=== PATIENT | female | born 1960 | race African-American/Black ===

== ENCOUNTER 2019-01-28 10:27 | Observation (INO) ==
[2019-01-28 11:14] LABS: Bilirubin,Urine Negative (Negative); Blood,Urine Negative (Negative); Clarity,Urine Clear (Clear); Color,Urine Yellow (Yellow); Glucose,Urine (UA) >=1000 mg/dL (Normal); Ketones,Urine Negative (Negative); Leukocyte Esterase,Urine Negative (Negative); Nitrite,Urine Negative (Negative); PH,Urine 7.5 pH Units (5.0-8.0); Protein,Urine Trace mg/dL (Neg-Trace); Specific Gravity,Urine > 1.030 (1.010-1.025); Urobilinogen,Urine Normal (Normal)
[2019-01-28] MEDS ORDERED: Ondansetron 4 MG/2 ML VIAL IVP STA (11:44)
[2019-01-28] MEDS ORDERED: GI Cocktail 40 ML EACH PO ONE (11:44)
[2019-01-28] MEDS ORDERED: Morphine Sulfate 2 MG/ML SYRINGE IVP STA ×3 (11:44→16:11)
--- NOTE | 2019-01-28 11:52 | Emergency Department Note ---
Disposition Clinical Impression: Abdominal pain Qualifiers: Abdominal location: generalized Qualified Code(s): R10.84 - Generalized abdominal pain Pancreatitis Qualifiers: Chronicity: acute Pancreatitis type: unspecified pancreatitis type Acute pancreatitis complication: unspecified Qualified Code(s): K85.90 - Acute pancreatitis without necrosis or infection, unspecified Disposition: Admitted As Inpatient Condition: Good Referrals: Ian Gupta DO [Primary Care Provider] - Forms: ED Satisfaction Letter, Work/School Release Time of Disposition: 17:06 General Adult HPI - General Chief complaint: ED Abdominal Pain Stated complaint: RUQ pain Time Seen by Provider: 01/28/19 10:41 Source: patient Limitations: no limitations Nursing Notes Reviewed: Yes Vital Signs Reviewed: Yes - History of Present Illness HPI Narrative: Patient reporting to emergency complaining of a several month history of upper abdominal pain. She has been seen by GI extensively for this. Has had an EGD as well as HIDA scan. She does have a history of an appendectomy. She reports decreased bowel movements of no bowel movement today and not passing gas today. She denies any fevers but does report some nausea. Has had vomiting but not today. She describes the vomiting is whenever she ate recently. Nonbloody nonbilious. Patient is also reporting some abdominal distention. She went to the GI doctor today and was sent to the emergency department. Pain Scale: 8 - Related Data Allergies Allergy/AdvReac Type Severity Reaction Status Date / Time No Known Allergies Allergy Verified 01/28/19 10:31 All systems ED: reviewed and negative except as stated. Review of Systems: As Per HPI Constitutional: Denies: fever, chills Cardiovascular: Denies: chest pain Respiratory: Denies: cough, dyspnea Gastrointestinal: Reports: abdominal pain, nausea, vomiting, constipation. Denies: diarrhea, hematemesis, melena, hematochezia Genitourinary: Denies: urgency, dysuria, frequency, hematuria Musculoskeletal: Denies: back pain, neck pain Neurological: Denies: headache Past Medical History - Past Medical History Attestation: Yes The following information was validated with the patient. Source: patient Medical history: Reports: diabetes, GERD, hypertension Surgical history: Reports: appendectomy, hysterectomy, other Psychiatric history: Reports: anxiety - Social History Smoking Status: Current every day smoker Smokeless Tobacco Status: No Alcohol use: Reports: none Drug use: Reports: none Physical Exam - General Limitations: no limitations General appearance: alert, in no apparent distress - Head Head exam: atraumatic, normocephalic, normal inspection - Eye Eye exam: Present: normal appearance, PERRL, EOMI - ENT ENT exam: normal exam, normal oropharynx, mucous membranes moist - Neck Neck exam: Present: normal inspection, full ROM, trachea midline - Chest Chest inspection: Present: normal inspection, symmetric chest wall rise - Respiratory Respiratory exam: Present: normal lung sounds bilaterally. Absent: respiratory distress, accessory muscle use - Cardiovascular Cardiovascular exam: Present: regular rate, normal rhythm, normal heart sounds - Abdominal Exam Abdominal exam: Present: soft, tenderness (Epigastric.), distention (Mildly ), guarding. Absent: rebound, rigidity, organomegaly, Navas's sign, Rovsing's sign, tenderness at McBurney's Point - Extremities Exam Extremities exam: Present: normal inspection, full ROM, normal capillary refill. Absent: tenderness, pedal edema - Neurological Exam Neurological exam: Present: alert, oriented X3 - Psychiatric Psychiatric exam: Present: normal affect, normal mood - Skin Skin exam: Present: warm, dry, intact, normal color. Absent: rash, cyanosis, diaphoresis Course Course Narrative: Patient appears uncomfortable in bed. She does have some mild abdominal distention. No fluid wave appreciated. Does have some epigastric tenderness. Patient has had an EGD which did show some gastritis. She has been on Carafate as well as a PPI. She she has had a colonoscopy previously however spent several years. She denies any bowel movements today states she did have one yesterday. She is not passing gas today either. Does have a history of an appendectomy. Still has her gallbladder. Reports a weight loss secondary to anorexia. We will provide patient with pain medication as well as an anti- medics. She states she has had relief with a GI cocktail previously we will provide her with this as well. We will get a CT of her abdomen and discussed the case with the nurse practitioner that sent her here from GI. - Reevaluation(s) Reevaluation #1: We will order an MRCP an attempt to get this outpatient is still in the ER. We have provided her with liter fluid. She does have a leukocytosis, anorexia, no vision or alkaline phosphatase. Mild elevation in her lipase. Patient has had recurrence of her abdominal pain she has been here. CT without acute process. Time: 14:20 Reevaluation #2: Patient has had a reoccurrence of her abdominal pain since she has been here. She is requiring morphine approximately every 2 hours. We were able to get the MRCP here in the emergency department. This had no acute findings. Patient's lipase is 3 times the normal limit. She does have pancreatitis. We will provide patient with continued pain medication as well as fluid hydration while she is here. We will admit to the hospital for her anorexia as well as continued abdominal pain. On repeat abdominal exam it is still mildly distended with pain throughout on palpation. Not peritoneal. No fluid wave. Time: 17:06 - Consultations Consultation #1: I spoke with CRISPIN Vallejo in GI. She was requesting the patient have an MRCP. She stated that the Pt did have an EGD that showed gastritis and duodenal erosion patient has been on PPIs as well as Carafate with no resolution. She reports a weight loss recently. She is concerned that the patient needed an MRCP so she sent her here. She said she did have a HIDA scan so she was concerned for choledocholithiasis. Time: 11:49 Consultation #2: I did discuss the patient with Junito air pollution compliance inspector for GI. He is agreeable for admission if this needs to happen for the patient have an MRCP. Time: 14:15 Consultation #3: Dr. Washington accepted patient in stable condition Time: 17:06 Vital Signs Temperature 98.5 F 01/28/19 10:29 Pulse Rate 87 01/28/19 10:29 Respiratory Rate 16 01/28/19 10:29 Blood Pressure 153/82 01/28/19 10:29 O2 Sat by Pulse Oximetry 97 01/28/19 10:29 Temperature 98.5 F 01/28/19 10:29 Pulse Rate 82 01/28/19 16:59 Respiratory Rate 16 01/28/19 16:59 Blood Pressure 144/72 01/28/19 16:59 O2 Sat by Pulse Oximetry 98 01/28/19 16:59 Oxygen Delivery Oxygen Delivery Room Air Medical Decision Making - MDM Narrative Medical decision making narrative: 1333: Labs are back, we will page GI to determine best management and disposition for her. 1617 hrs.: Patient is return from MRCP. Waiting on GI to read the study. Abdomen/Pelvis CT 01/28/19 11:43 IMPRESSION: No acute intra-abdominal abnormality identified. Small nonobstructing calculus in the lower left kidney unchanged. Normal amount of stool present without evident impaction. Severe scoliosis. No other significant abnormality. No significant change from the prior study. D/ / Chris Albert MD / Chris Albert MD Interpreting Provider: Chris Albert MD Abdomen MRI 01/28/19 14:12 IMPRESSION: 1. No acute process. 2. No cholelithiasis or choledocholithiasis. D/ / Ian Rendon MD / Ian Rendon MD Interpreting Provider: Ian Rendon MD 1655 hrs.: Am uncertain as to why she saw him abdominal pain as her CT and MRI the abdomen is not very impressive. She does have a leukocytosis and her lipase is elevated. We are talked about how she is feeling if she still having pain we will consider bring her into the hospital with hospitalist admission. - Medical Records Medical records reviewed: Yes I reviewed the patient's medical records. - Lab Data Lab results reviewed: Yes I reviewed the patient's lab results. Result diagrams: 01/28/19 11:53 01/28/19 11:53 Lab Results 01/28/19 01/28/19 01/28/19 Range/Units 11:03 11:53 11:53 WBC 16.4 H (4.3-11.1) K/mcL RBC 4.99 H (3.82-4.97) M/mcL Hgb 12.4 (11.5-15.4) g/dL Hct 39.1 (35.3-44.9) % MCV 78.4 L (83.0-100.0) fL MCH 24.8 L (28.0-33.3) pg MCHC 31.7 (31.6-35.5) g/dL RDW 15.8 H (11.5-14.5) % Plt Count 239 (140-400) K/mcL MPV 12.3 (9.4-12.4) fL Immature Gran % 0.4 (0-4) % Seg Neutrophils % 80.1 % Lymphocytes % 13.8 % Monocytes % 5.1 % Eosinophils % 0.2 % Basophils % 0.4 % Neutrophils # 13.2 H (1.6-8.9) K/mcL Lymphocytes # 2.3 (0.6-4.6) K/mcL Monocytes # 0.8 (0.0-1.3) K/mcL Eosinophils # 0.0 (0.0-0.6) K/mcL Basophils # 0.1 (0.0-0.2) K/mcL Sodium 135 L (136-145) mEq/L Potassium 4.0 (3.5-5.1) mEq/L Chloride 98 (98-107) mEq/L Carbon Dioxide 27 (23-29) mEq/L BUN 21 (8-23) mg/dL Creatinine 0.73 (0.60-1.20) mg/dL Est GFR ( Amer) > 60 (> 60) Est GFR (Non-Af Amer) > 60 (> 60) BUN/Creatinine Ratio 29 H (6-26) Glucose 372 H (70-105) mg/dL Calculated Osmolality 298 (280-300) Calcium 10.3 (8.6-10.3) mg/dL Total Bilirubin 0.2 L (0.3-1.0) mg/dL AST 8 L (13-39) Units/L ALT 8 (7-52) Units/L Alkaline Phosphatase 126 H (34-104) Units/L Serum Total Protein 7.8 (6.4-8.9) g/dL Albumin 4.4 (3.5-5.7) g/dL Globulin 3.4 (2.4-3.5) g/dL Albumin/Globulin Ratio 1.3 (1.1-2.2) Lipase 353 H (11-82) Units/L Urine Color Yellow (Yellow) Urine Clarity Clear (Clear) Urine pH 7.5 (5.0-8.0) pH Units Ur Specific [place] > 1.030 H (1.010-1.025) Urine Protein Trace (Neg-Trace) mg/dL Urine Glucose (UA) >=1000 H (Normal) mg/dL Urine Ketones Negative (Negative) mg/dL Urine Blood Negative (Negative) Urine Nitrite Negative (Negative) Urine Bilirubin Negative (Negative) Urine Urobilinogen Normal (Normal) mg/dL Ur Leukocyte Esterase Negative (Negative) Ur Culture Indicated? NO (NO) - Radiology Data Radiology results reviewed: Yes I reviewed the patient's radiology results. Abdomen/Pelvis CT 01/28/19 11:43 IMPRESSION: No acute intra-abdominal abnormality identified. Small nonobstructing calculus in the lower left kidney unchanged. Normal amount of stool present without evident impaction. Severe scoliosis. No other significant abnormality. No significant change from the prior study. D/ / Chris Albert MD / Chris Albert MD Interpreting Provider: Chris Albert MD - EKG Data EKG #1 EKG attestation: Yes I reviewed and interpreted this EKG. EKG results narrative: Normal sinus rhythm at a rate 80. ME interval is 150. Castration is 91. QT is 395. QTC is 456. No signs of acute ischemia. Good R-wave progression. No signs of WPW or Brugada. No significant change from previous EKG dated 11/28/2018. Attestation Statement - Attestation Attestation: This documentation is done with the assistance of Dragon dictation. Despite efforts made to ensure accuracy, there may be inaccuracies in mine safety director or spelling and typographical errors. I examined this patient and my medical decision-making was reviewed with the Resident Physician. I agree with the documented findings, disposition and treatment plan as described except to the extent set forth below. Patient was seen and evaluated by Dr. Olea I agree with their evaluation and management plan, I supervised care the patient's stay. Patient presents today with right upper quadrant pain. She has had a HIDA scan and an ERCP done that were negative. She followed and GI today and they sent her over here for an MRCP which we do not usually do in the ER. She does have some tenderness in the right upper quadrant worrisome labs try to make her more comfortable then reassess. She is in agreement with this plan. I reviewed the residents documentation and agree with the residents assessment and plan of care. I have personally had face to face time with the patient. (Brief History, Brief Exam, and MDM) I personally supervised and was present for the crow/critical portions of the following procedures completed by the resident: EKG was interpreted by the resident under my supervision, I agree with their interpretation.
[2019-01-28 12:05] LABS: Basophils # 0.1 K/mcL (0.0-0.2); Basophils % 0.4 %; Eosinophils % 0.2 %; Hematocrit 39.1 % (35.3-44.9); Hemoglobin 12.4 g/dL (11.5-15.4); Immature Granulocytes % 0.4 % (0-4); Lymphocytes # 2.3 K/mcL (0.6-4.6); Lymphocytes % 13.8 %; Mean Corpuscular HGB Conc 31.7 g/dL (31.6-35.5); Mean Corpuscular Hemoglobin 24.8 pg (28.0-33.3); Mean Corpuscular Volume 78.4 fL (83.0-100.0); Mean Platelet Volume 12.3 fL (9.4-12.4); Monocytes # 0.8 K/mcL (0.0-1.3); Monocytes % 5.1 %; Neutrophils # 13.2 K/mcL (1.6-8.9); Platelet Count 239 K/mcL (140-400); Red Blood Count 4.99 M/mcL (3.82-4.97); Red Cell Distribution Width 15.8 % (11.5-14.5); Segmented Neutrophils % 80.1 %; White Blood Count 16.4 K/mcL (4.3-11.1)
[2019-01-28 12:26] LABS: Alanine Aminotransferase 8 Units/L (7-52); Albumin 4.4 g/dL (3.5-5.7); Albumin/Globulin Ratio 1.3 (1.1-2.2); Alkaline Phosphatase 126 Units/L (34-104); Aspartate Amino Transferase 8 Units/L (13-39); BUN/Creatinine Ratio 29 (6-26); Bilirubin,Total 0.2 mg/dL (0.3-1.0); Blood Urea Nitrogen 21 mg/dL (8-23); Calcium 10.3 mg/dL (8.6-10.3); Carbon Dioxide 27 mEq/L (23-29); Chloride 98 mEq/L (98-107); Globulin 3.4 g/dL (2.4-3.5); Glucose 372 mg/dL (70-105); Lipase 353 Units/L (11-82); Osmolality,Calculated 298 (280-300); Sodium 135 mEq/L (136-145); Total Protein 7.8 g/dL (6.4-8.9); eGFR For African Americans > 60 (> 60); eGFR For Non-African Americans > 60 (> 60)
[2019-01-28] MEDS ORDERED: Ondansetron 4 MG/2 ML VIAL IVP ONE (14:00)
[2019-01-28] MEDS ORDERED: 0.9 % Sodium Chloride 1,000 ML IVC ONE (14:19)
[2019-01-28] MEDS ORDERED: D5% in Water 1,000 ML IVC PRN (17:14)
[2019-01-28] MEDS ORDERED: Dextrose Gel 15 GM/37.5 ML TUBE PO PRN ×2 (17:14)
[2019-01-28] MEDS ORDERED: *HR* Dextrose 50 % in Water (Syg) 50 ML SYRINGE IVP PRN (17:14)
[2019-01-28] MEDS ORDERED: *HR* Promethazine 25 MG/ML VIAL IVP PRN (17:15)
[2019-01-28] MEDS ORDERED: Naloxone 0.4 MG/ML INJ IVP PRN (17:15)
--- NOTE | 2019-01-28 17:44 | Internal Med History&Physical ---
Date of Encounter: 01/28/19 Time of Encounter: 17:20 Internal Medicine - H&P: HPI Chief complaint: Abdominal pain Admitted From: Home History of present illness: Ms. Teran is a 58 year old female with history of poorly controlled diabetes, tobacco abuse, chronic abdominal pain for the last 2 years with multiple -ve workup, who presented from GI clinic due to intractable abdominal pain. Located in epigastric region, crampy in nature, radiates to RUQ and wraps around to the back, worse with food, no relieving factors. Associated with bouts of diarrhea last week but had been without any BM for the last 3 days requiring laxatives. Also reports intermittent nausea and vomiting. No sick contacts. No fever/chills, shortness of breath, cough, chest pain, or palpitation. No new joint pain or rash. Denies any alcohol or recreational drug use. In the ED, she was afebrile and hemodynamically stable. Labwork showed leukocytosis of 16.4 and lipase of 353. LFT and urinalysis unremarkable. CT Abdo pelvis did not show any acute intra-abdominal processes including constipation. She subsequently underwent MRI which did not show any cholelithiasis or choledocholithiasis. Of note, her previous workup includes HIDA scan 01/14/2019 (normal), EGD 11/2018 showing grade a reflux esophagitis and gastritis, and colonoscopy 2 years ago that is reported to be normal (no report available). She was given IV fluid, GI cocktail, multiple courses of morphine, and admitted for further management. Past Med Surg Social Fam HX - Past Medical History Medical history: diabetes, GERD, hypertension Psychiatric history: anxiety - Past Surgical History Surgical History: appendectomy, hysterectomy, other Additional surgical history: spinal fusionC4,C5,C6 - Social History Smoking Status: Current every day smoker Smokeless Tobacco Status: No Alcohol use: none Drug use: none - Additional Family History Additional family history: No family history of GI malignancy Internal Medicine - H&P: Meds ALPRAZolam [Xanax 0.5 MG Tablet] 1 tab PO TID 01/28/19 [History] Atorvastatin [Lipitor] 40 mg PO HS 01/28/19 [History] Canagliflozin/Metformin HCl [Invokamet Xr 50-1,000 mg Tab] 1 each PO BID 01/28/19 [History] Cyclobenzaprine [Flexeril] 10 mg PO DAILY PRN 01/28/19 [History] Dicyclomine Hcl [Bentyl] 20 mg PO DAILY 01/28/19 [History] DiphenhydraMINE [Benadryl] 25 mg PO DAILY 01/28/19 [History] Lisinopril [Zestril] 20 mg PO DAILY 01/28/19 [History] Pantoprazole Sodium [Protonix] 40 mg PO DAILY 01/28/19 [History] Paroxetine [Paxil] 20 mg PO DAILY 01/28/19 [History] Sucralfate [Carafate] 1 gm PO QIDAC 01/28/19 [History] Allergy/AdvReac Type Severity Reaction Status Date / Time No Known Allergies Allergy Verified 01/28/19 10:31 All Systems PM: A 10-system review of systems was performed and is negative for pertinent findings except as documented above in the HPI. - Constitutional Vitals: Temp Pulse Resp BP Pulse Ox 98.5 F 82 16 144/72 98 01/28/19 10:29 01/28/19 16:59 01/28/19 16:59 01/28/19 16:59 01/28/19 16:59 Exam: General: Alert and oriented, not in acute distress. HEENT:EOMI, pupils equal, round and reactive. Cardiovascular:Normal S1 & S2, No JVD. Pulse regular. Lungs: clear to auscultation, no wheezes/rales Abdomen:Soft, tender in right upper quadrant and epigastric region with voluntary guarding. No rebound/rigidity. Bowel sounds active Extremities:No deformity or swelling Neurological:Normal cognition and motor skills. Non-focal Skin:Normal color, no rash, no lesions. Pulses:Carotid and radial pulses normal +2. Rest of the physical exam is non contributory Internal Med - H&P Results - Labs CBC & Chem 7: 01/28/19 11:53 01/28/19 11:53 Labs: Short CBC 01/28/19 Range/Units 11:53 WBC 16.4 H (4.3-11.1) K/mcL Hgb 12.4 (11.5-15.4) g/dL Hct 39.1 (35.3-44.9) % Plt Count 239 (140-400) K/mcL Neutrophils # 13.2 H (1.6-8.9) K/mcL BMP 01/28/19 11:53 Sodium 135 L Potassium 4.0 Chloride 98 Carbon Dioxide 27 BUN 21 Creatinine 0.73 Glucose 372 H Calcium 10.3 Liver Function 01/28/19 Range/Units 11:53 Total Bilirubin 0.2 L (0.3-1.0) mg/dL AST 8 L (13-39) Units/L ALT 8 (7-52) Units/L Alkaline Phosphatase 126 H (34-104) Units/L Albumin 4.4 (3.5-5.7) g/dL Urine 01/28/19 Range/Units 11:03 Urine Color Yellow (Yellow) Urine Clarity Clear (Clear) Urine pH 7.5 (5.0-8.0) pH Units Ur Specific [place] > 1.030 H (1.010-1.025) Urine Protein Trace (Neg-Trace) mg/dL Urine Glucose (UA) >=1000 H (Normal) mg/dL - Impressions ITS Impressions Abdomen/Pelvis CT 01/28/19 11:43 IMPRESSION: No acute intra-abdominal abnormality identified. Small nonobstructing calculus in the lower left kidney unchanged. Normal amount of stool present without evident impaction. Severe scoliosis. No other significant abnormality. No significant change from the prior study. D/ / Chris Albert MD / Chris Albert MD Interpreting Provider: Chris Albert MD Abdomen MRI 01/28/19 14:12 IMPRESSION: 1. No acute process. 2. No cholelithiasis or choledocholithiasis. D/ / Ian Rendon MD / Ian Rendon MD Interpreting Provider: Ian Rendon MD - Assessment and Plan (1) Abdominal pain Current Visit: Yes Status: Acute Assessment and plan: acute on chronic, has had multiple workups as listed in HPI that were unremarkable although lipase is elevated at 353, her pain is not characteristic of pancreatitis, no obvious risk factors for pancreatitis, or have imaging findings consistent with pancreatic edema or peripancreatic stranding other possibilities include diabetic gastroparesis, IBS given multiple negative workups nevertheless, will check lipid panel to look for hyperTG NPO, IVF, symptomatic mx GI consult in the morning Qualifiers: Abdominal location: epigastric Qualified Code(s): R10.13 - Epigastric pain (2) Pancreatitis Current Visit: Yes Status: Suspected Assessment and plan: As above, although her lipase is elevated, she does not have any risk factors for acute pancreatitis nor have characteristic abdominal pain NPO and IVF check lipid panel Qualifiers: Chronicity: acute Pancreatitis type: unspecified pancreatitis type Acute pancreatitis complication: unspecified Qualified Code(s): K85.90 - Acute pancreatitis without necrosis or infection, unspecified (3) Diabetes Current Visit: Yes Status: Chronic Assessment and plan: poorly controlled, A1c 11.7 in 12/2018 hold off on invokamet sliding scale coverage Q6 while NPO Qualifiers: Diabetes mellitus type: type 2 Diabetes mellitus long term care administrator insulin use: without long term care administrator use Diabetes mellitus complication status: with other specified complication Qualified Code(s): E11.69 - Type 2 diabetes mellitus with other specified complication (4) Tobacco abuse Current Visit: Yes Status: Acute Assessment and plan: smoking cessation advised NRT (5) DVT prophylaxis Current Visit: Yes Status: Acute Assessment and plan: EPCD - Time Spent With Patient Total time spent is greater than 50% in coordination of care (as documented) at patient's floor/unit and/or counseling patient: 25 - 35 minutes
[2019-01-28 17:54] LABS: Chol/HDL Ratio 3.2 (0-4.9); Cholesterol 127 mg/dL (< 200); HDL Cholesterol 40 mg/dL (40-59); LDL Cholesterol,Calculated 67 mg/dL (0-99); Triglycerides 99 mg/dL (< 150)
[2019-01-28] MEDS: Ringers Solution, Lactated 1,000 ML IVC SCH (19:11)
[2019-01-28] MEDS: Insulin LISPRO 300 UNITS/3 ML VIAL SQ SCH (19:13)
[2019-01-28 22:18] LABS: Bilirubin,Urine Negative (Negative); Blood,Urine Small (Negative); Clarity,Urine Cloudy (Clear); Color,Urine Yellow (Yellow); Glucose,Urine (UA) 500 mg/dL (Normal); Ketones,Urine Negative (Negative); Leukocyte Esterase,Urine Moderate (Negative); Nitrite,Urine Negative (Negative); Protein,Urine 100 mg/dL (Neg-Trace); Specific Gravity,Urine 1.029 (1.010-1.025); Urobilinogen,Urine Normal (Normal)
[2019-01-28 22:20] LABS: Bacteria,Urine Many per hpf (None-Few); Hyaline Casts,Urine None Seen per lpf (None-Few); Squamous Epithelial Cell,Urine Many per lpf (None-Few); WBC,Urine TNTC per hpf (0-3)
[2019-01-28 22:30] LABS: Amphetamine Screen,Urine Negative ng/mL (Cutoff=1000); Barbiturate Screen,Urine Negative ng/mL (Cutoff=200); Benzodiazepines Screen,Urine Negative ng/mL (Cutoff=200); Cannabinoid Screen,Urine Negative ng/mL (Cutoff = 50); Cocaine Screen,Urine Negative ng/mL (Cutoff= 300); Opiate Screen,Urine Positive ng/mL (Cutoff=300); Phencyclidine Screen,Urine Negative ng/mL (Cutoff=25)
[2019-01-28] MEDS: ALPRAZolam 0.5 MG TABLET PO SCH (22:36)
[2019-01-28] MEDS: Sucralfate 1 GM TABLET PO SCH (22:36)
[2019-01-28] MEDS: Ondansetron 4 MG/2 ML VIAL IVP PRN (22:37)
[2019-01-29] MEDS: Insulin LISPRO 300 UNITS/3 ML VIAL SQ SCH ×3 (00:42→13:31)
[2019-01-29] MEDS: Ringers Solution, Lactated 1,000 ML IVC SCH (01:45)
[2019-01-29 07:44] LABS: Basophils % 0.3 %; Eosinophils # 0.2 K/mcL (0.0-0.6); Eosinophils % 1.5 %; Hematocrit 34.5 % (35.3-44.9); Immature Granulocytes % 0.3 % (0-4); Lymphocytes # 3.4 K/mcL (0.6-4.6); Lymphocytes % 25.8 %; Mean Corpuscular HGB Conc 31.3 g/dL (31.6-35.5); Mean Corpuscular Hemoglobin 24.9 pg (28.0-33.3); Mean Corpuscular Volume 79.5 fL (83.0-100.0); Mean Platelet Volume 12.6 fL (9.4-12.4); Monocytes # 0.7 K/mcL (0.0-1.3); Neutrophils # 8.9 K/mcL (1.6-8.9); Platelet Count 200 K/mcL (140-400); Red Blood Count 4.34 M/mcL (3.82-4.97); Red Cell Distribution Width 15.8 % (11.5-14.5); Segmented Neutrophils % 67.1 %; White Blood Count 13.2 K/mcL (4.3-11.1)
[2019-01-29 07:49] LABS: Hemoglobin 10.8 g/dL (11.5-15.4)
[2019-01-29] MEDS: Sucralfate 1 GM TABLET PO SCH ×2 (08:01→13:21)
[2019-01-29 08:04] LABS: Alanine Aminotransferase 5 Units/L (7-52); Albumin 3.6 g/dL (3.5-5.7); Albumin/Globulin Ratio 1.2 (1.1-2.2); Alkaline Phosphatase 85 Units/L (34-104); Aspartate Amino Transferase 8 Units/L (13-39); BUN/Creatinine Ratio 28 (6-26); Bilirubin,Total 0.3 mg/dL (0.3-1.0); Blood Urea Nitrogen 17 mg/dL (8-23); Calcium 9.3 mg/dL (8.6-10.3); Carbon Dioxide 24 mEq/L (23-29); Chloride 104 mEq/L (98-107); Globulin 2.9 g/dL (2.4-3.5); Glucose 131 mg/dL (70-105); Magnesium 1.7 mg/dL (1.6-2.6); Osmolality,Calculated 291 (280-300); Potassium 3.9 mEq/L (3.5-5.1); Sodium 139 mEq/L (136-145); Total Protein 6.5 g/dL (6.4-8.9); eGFR For African Americans > 60 (> 60); eGFR For Non-African Americans > 60 (> 60)
[2019-01-29] MEDS: Ondansetron 4 MG/2 ML VIAL IVP PRN (08:06)
[2019-01-29] MEDS ORDERED: Nicotine 14 MG PATCH.TD24 TD SCH (09:00)
[2019-01-29] MEDS ORDERED: Lisinopril 20 MG TABLET PO SCH (09:00)
[2019-01-29] MEDS ORDERED: Ringers Solution, Lactated 1,000 ML IVC SCH (09:45)
--- NOTE | 2019-01-29 10:21 | Discharge Summary ---
- NOTES TO OUTPATIENT PROVIDER Notes to Outpatient Provider: Follow-up with GI on 02/01. Invokana may need to be switched to another agent due to UTI Orders not resulted at time of discharge: Pending orders 01/28/19 22:00 Culture,Urine [RM] Stat 01/29/19 08:01 Urinalysis Reflex Cult & Micro [URIN] Stat 01/29/19 09:34 UA w. reflex culture [Urinalysis Reflex Cult & Micro] [URIN] Stat Date of Encounter: 01/29/19 Time of Encounter: 07:45 - Discharge Diagnosis (1) Abdominal pain Priority: Primary Status: Acute Qualifiers: Abdominal location: epigastric Qualified Code(s): R10.13 - Epigastric pain (2) Pancreatitis Priority: Secondary Status: Suspected Qualifiers: Chronicity: acute Pancreatitis type: unspecified pancreatitis type Acute pancreatitis complication: unspecified Qualified Code(s): K85.90 - Acute pancreatitis without necrosis or infection, unspecified (3) Diabetes Priority: Secondary Status: Chronic Qualifiers: Diabetes mellitus type: type 2 Diabetes mellitus long term care administrator insulin use: without long term care administrator use Diabetes mellitus complication status: with other specified complication Qualified Code(s): E11.69 - Type 2 diabetes mellitus with other specified complication (4) Tobacco abuse Priority: Secondary Status: Acute (5) DVT prophylaxis Priority: Secondary Status: Acute (6) Acute cystitis Priority: Secondary Status: Acute Qualifiers: Hematuria presence: without hematuria Qualified Code(s): N30.00 - Acute cystitis without hematuria Hospital course: Ms. Teran is a 58 year old female with history of poorly controlled diabetes, tobacco abuse, chronic abdominal pain for the last 2 years with multiple -ve workup, who was admitted from GI clinic due to intractable abdominal pain. Had elevated lipase of 350 but no other factors consistent with acute pancreatitis. non-alcoholic, no gallstones or deranged LFT, and normal triglyceride. It was attributed to diabetic gastroparesis +/- IBS and acute cystitis. Seen in consultation with GI and pt symptomatically improved with bowel rest and IVF. Tolerated clears well prior to d/c and was advised to take meshed, bland diet till GI follow up on 02/01/19. She is also given a course of Keflex for uncomplicated cystitis; Invokana may need to be switched to another regimen given her UTI. Discharge discussed with: patient, nurse, wallpaper consultant - Time Spent with Patient Total time spent providing and/or coordinating discharge services:28 mins - Discharge Medications Prescriptions: New cephALEXin [Keflex] 500 mg PO BID 5 Days #10 capsule OxyCODONE/APAP 5/325 [Percocet 5/325 MG] 1 each PO Q6HR PRN 3 Days #12 tablet PRN Reason: Breakthrough Pain Ondansetron ODT [Zofran ODT] 4 mg SL Q6HR PRN 6 Days #18 tab.rapdis PRN Reason: Nausea And Vomiting Continued Lisinopril [Zestril] 20 mg PO DAILY Sucralfate [Carafate] 1 gm PO QIDAC Pantoprazole Sodium [Protonix] 40 mg PO DAILY Cyclobenzaprine [Flexeril] 10 mg PO DAILY PRN PRN Reason: Pain DiphenhydraMINE [Benadryl] 25 mg PO DAILY Atorvastatin [Lipitor] 40 mg PO HS Paroxetine [Paxil] 20 mg PO DAILY Dicyclomine Hcl [Bentyl] 20 mg PO DAILY Canagliflozin/Metformin HCl [Invokamet Xr 50-1,000 mg Tab] 1 each PO BID ALPRAZolam [Xanax 0.5 MG Tablet] 1 tab PO TID Home Medications: ALPRAZolam [Xanax 0.5 MG Tablet] 1 tab PO TID 01/28/19 [History] Atorvastatin [Lipitor] 40 mg PO HS 01/28/19 [History] Canagliflozin/Metformin HCl [Invokamet Xr 50-1,000 mg Tab] 1 each PO BID 01/28/19 [History] Cyclobenzaprine [Flexeril] 10 mg PO DAILY PRN 01/28/19 [History] Dicyclomine Hcl [Bentyl] 20 mg PO DAILY 01/28/19 [History] DiphenhydraMINE [Benadryl] 25 mg PO DAILY 01/28/19 [History] Lisinopril [Zestril] 20 mg PO DAILY 01/28/19 [History] Pantoprazole Sodium [Protonix] 40 mg PO DAILY 01/28/19 [History] Paroxetine [Paxil] 20 mg PO DAILY 01/28/19 [History] Sucralfate [Carafate] 1 gm PO QIDAC 01/28/19 [History] Ondansetron ODT [Zofran ODT] 4 mg SL Q6HR PRN 6 Days #18 tab.rapdis 01/29/19 [Rx] OxyCODONE/APAP 5/325 [Percocet 5/325 MG] 1 each PO Q6HR PRN 3 Days #12 tablet 01/29/19 [Rx] cephALEXin [Keflex] 500 mg PO BID 5 Days #10 capsule 01/29/19 [Rx] Allergies/Adverse Reactions: Allergy/AdvReac Type Severity Reaction Status Date / Time No Known Allergies Allergy Verified 01/28/19 10:31 Date of admission: 01/28/19 17:47 Primary care physician: Ian Gupta Consults: 01/28/19 17:49 Consult to Gastroenterology [CONS] Routine Consulting Provider: G[facility]enter[facility] Reason for Consult: intractable abdominal pain with multiple negative workup. ?diabetic gastroparesis ?IBS Call Completed: Yes - Constitutional Vitals: Temp Pulse Resp BP Pulse Ox 98.3 F 76 16 129/76 96 01/29/19 09:07 01/29/19 09:07 01/29/19 09:07 01/29/19 09:07 01/29/19 09:07 Exam: General: Alert and oriented, not in acute distress. Cardiovascular:Normal S1 & S2, No JVD. Pulse regular. Lungs: clear to auscultation, no wheezes/rales Abdomen:Soft, tender in right upper quadrant and epigastric region with voluntary guarding. No rebound/rigidity. Bowel sounds active Extremities:No deformity or swelling Neurological:Normal cognition and motor skills. Non-focal - Patient Status Disposition: Home, Self-Care Condition: Good Functional capacity at discharge: independent ambulation Overall status at discharge: patient is progressing back to baseline - Discharge Instructions Instructions: Pancreatitis (DC), Diabetes Mellitus Type 2 in Adults (DC) Follow Up With: Ian Gupta DO [Primary Care Provider] - Milton Freeman MD [Partnered Physician] - Additional Instructions: Follow up with GI on 02/01/2019 - Diet and Activity Activity: resume usual activities as tolerated Diet: other (meshded, bland diet)
[2019-01-29] MEDS: ALPRAZolam 0.5 MG TABLET PO SCH (10:32)
[2019-01-29 11:11] VITALS: BP 124/65
[2019-01-29 13:51] LABS: Bilirubin,Urine Negative (Negative); Blood,Urine Negative (Negative); Clarity,Urine Cloudy (Clear); Color,Urine Yellow (Yellow); Glucose,Urine (UA) >=1000 mg/dL (Normal); Ketones,Urine Negative (Negative); Leukocyte Esterase,Urine Small (Negative); Nitrite,Urine Negative (Negative); PH,Urine 7.5 pH Units (5.0-8.0); Protein,Urine 30 mg/dL (Neg-Trace); Urobilinogen,Urine Normal (Normal)
[2019-01-29 13:52] LABS: Bacteria,Urine Many per hpf (None-Few); Hyaline Casts,Urine None Seen per lpf (None-Few); RBC,Urine 0-3 per hpf (0-3); Squamous Epithelial Cell,Urine Many per lpf (None-Few); WBC,Urine 50-100 per hpf (0-3)
--- NOTE | 2019-01-31 13:36 | Electrocardiograph Report ---
[address] [address] Test Date: 2019-01-28 Pat Name: Lorna Teran Department: EXAM5 Room: 3A33 Gender: F Rn Neurology: : 1960 Requested By: Tyrone Li Order Number: [id number] Reading MD: Ricardo Dailey Measurements Intervals Wiggins Rate: 80 P: 71 NV: 150 QRS: -26 QRSD: 91 T: 44 QT: 395 QTc: 456 Interpretive Statements Sinus rhythm Borderline left axis deviation Poor R wave progression BASELINE ARTIFACT Electronically Signed On 01-31-2019 13:34:43 EDT by Ricardo Dialey
== END 2019-01-29 15:07 | disposition home or self-care (01) ==
LOC: EMEROOARM 10:27 → 3ANU 10:27 → SUATTDRO 17:47 → 3ANU 18:22
PROVIDERS: ADMIT Student in an Organized Health Care Education/Training Program; ATTEND Internal Medicine

== ENCOUNTER 2019-02-09 21:30 | Observation (INO) ==
[2019-02-09] MEDS ORDERED: 0.9 % Sodium Chloride 1,000 ML IVC ONE ×2 (22:04→23:42)
[2019-02-09] MEDS ORDERED: Milk and Molasses Enema 200 ML RC ONE (22:04)
[2019-02-09 22:57] LABS: Bilirubin,Urine Negative (Negative); Blood,Urine Negative (Negative); Clarity,Urine Clear (Clear); Color,Urine Yellow (Yellow); Glucose,Urine (UA) >=1000 mg/dL (Normal); Ketones,Urine Negative (Negative); Leukocyte Esterase,Urine Negative (Negative); Nitrite,Urine Negative (Negative); PH,Urine 6.5 pH Units (5.0-8.0); Protein,Urine 30 mg/dL (Neg-Trace); Specific Gravity,Urine > 1.030 (1.010-1.025); Urobilinogen,Urine Normal (Normal)
[2019-02-09 23:01] LABS: VBG HCO3 27 mEq/L (21-27); VBG PCO2 43 mmHg (41-51); VBG PH 7.41 pH Units (7.32-7.42); VBG PO2 84 mmHg (25-50)
[2019-02-09 23:05] LABS: Basophils # 0.1 K/mcL (0.0-0.2); Basophils % 0.3 %; Eosinophils # 0.1 K/mcL (0.0-0.6); Eosinophils % 0.6 %; Hemoglobin 11.6 g/dL (11.5-15.4); Immature Granulocytes % 0.4 % (0-4); Lymphocytes # 1.9 K/mcL (0.6-4.6); Lymphocytes % 11.4 %; Mean Corpuscular HGB Conc 33.1 g/dL (31.6-35.5); Mean Corpuscular Hemoglobin 25.1 pg (28.0-33.3); Mean Corpuscular Volume 75.6 fL (83.0-100.0); Mean Platelet Volume 11.4 fL (9.4-12.4); Monocytes % 5.7 %; Neutrophils # 13.9 K/mcL (1.6-8.9); Platelet Count 308 K/mcL (140-400); Red Blood Count 4.63 M/mcL (3.82-4.97); Red Cell Distribution Width 15.2 % (11.5-14.5); Segmented Neutrophils % 81.6 %
[2019-02-09 23:07] LABS: Bacteria,Urine None Seen per hpf (None-Few); Hyaline Casts,Urine None Seen per lpf (None-Few); RBC,Urine 0-3 per hpf (0-3); Squamous Epithelial Cell,Urine Few per lpf (None-Few); WBC,Urine 0-3 per hpf (0-3)
[2019-02-09 23:35] LABS: Alanine Aminotransferase 12 Units/L (7-52); Albumin/Globulin Ratio 1.1 (1.1-2.2); Alkaline Phosphatase 132 Units/L (34-104); Aspartate Amino Transferase 12 Units/L (13-39); BUN/Creatinine Ratio 22 (6-26); Bilirubin,Indirect 0.3 mg/dL (0.0-1.2); Bilirubin,Total 0.3 mg/dL (0.3-1.0); Blood Urea Nitrogen 17 mg/dL (8-23); Carbon Dioxide 25 mEq/L (23-29); Chloride 97 mEq/L (98-107); Globulin 3.8 g/dL (2.4-3.5); Glucose 535 mg/dL (70-105); Lipase 911 Units/L (11-82); Osmolality,Calculated 300 (280-300); Sodium 132 mEq/L (136-145); Total Protein 7.8 g/dL (6.4-8.9); eGFR For African Americans > 60 (> 60); eGFR For Non-African Americans > 60 (> 60)
[2019-02-09] MEDS ORDERED: Insulin Human Regular 10 UNIT in 0.9 % Sodium Chloride 10 ML IV ONE (23:42)
[2019-02-10] MEDS ORDERED: Naloxone 0.4 MG/ML INJ IVP PRN (00:57)
[2019-02-10] MEDS ORDERED: Acetaminophen 325 MG TABLET PO PRN (00:57)
[2019-02-10] MEDS ORDERED: *HR* HYDROcodone/Acet 5/325 mg TABLET PO PRN (00:57)
[2019-02-10] MEDS ORDERED: Ondansetron 4 MG/2 ML VIAL IVP PRN (00:57)
[2019-02-10] MEDS ORDERED: D5% in Water 1,000 ML IVC PRN (00:59)
[2019-02-10] MEDS ORDERED: Dextrose Gel 15 GM/37.5 ML TUBE PO PRN ×2 (00:59)
[2019-02-10] MEDS ORDERED: *HR* Dextrose 50 % in Water (Syg) 50 ML SYRINGE IVP PRN (00:59)
[2019-02-10] MEDS ORDERED: 0.9 % Sodium Chloride 1,000 ML IVC SCH (01:00)
[2019-02-10] MEDS ORDERED: *HR* Metoprolol 5 MG/5 ML VIAL IVP ONE (03:50)
[2019-02-10 05:33] LABS: Basophils % 0.3 %; Eosinophils # 0.2 K/mcL (0.0-0.6); Eosinophils % 1.1 %; Hematocrit 35.5 % (35.3-44.9); Hemoglobin 11.3 g/dL (11.5-15.4); Immature Granulocytes % 0.3 % (0-4); Lymphocytes % 19.8 %; Mean Corpuscular HGB Conc 31.8 g/dL (31.6-35.5); Mean Corpuscular Hemoglobin 24.8 pg (28.0-33.3); Mean Platelet Volume 11.4 fL (9.4-12.4); Monocytes # 0.9 K/mcL (0.0-1.3); Monocytes % 5.8 %; Platelet Count 308 K/mcL (140-400); Red Blood Count 4.55 M/mcL (3.82-4.97); Red Cell Distribution Width 15.4 % (11.5-14.5); Segmented Neutrophils % 72.7 %; White Blood Count 15.2 K/mcL (4.3-11.1)
[2019-02-10] MEDS: Insulin LISPRO 300 UNITS/3 ML VIAL SQ SCH ×3 (06:22→16:50)
[2019-02-10] MEDS ORDERED: Ondansetron ODT 4 MG TAB.RAPDIS SL PRN (06:55)
[2019-02-10 06:58] LABS: Alanine Aminotransferase 10 Units/L (7-52); Albumin 3.8 g/dL (3.5-5.7); Albumin/Globulin Ratio 1.2 (1.1-2.2); Alkaline Phosphatase 108 Units/L (34-104); Aspartate Amino Transferase 10 Units/L (13-39); BUN/Creatinine Ratio 25 (6-26); Bilirubin,Total 0.3 mg/dL (0.3-1.0); Blood Urea Nitrogen 15 mg/dL (8-23); Calcium 9.5 mg/dL (8.6-10.3); Carbon Dioxide 26 mEq/L (23-29); Chloride 105 mEq/L (98-107); Cholesterol 130 mg/dL (< 200); Globulin 3.3 g/dL (2.4-3.5); Glucose 151 mg/dL (70-105); HDL Cholesterol 44 mg/dL (40-59); LDL Cholesterol,Calculated 68 mg/dL (0-99); Magnesium 2.2 mg/dL (1.6-2.6); Osmolality,Calculated 296 (280-300); Phosphorous 3.3 mg/dL (2.7-4.5); Potassium 4.1 mEq/L (3.5-5.1); Sodium 141 mEq/L (136-145); Total Protein 7.1 g/dL (6.4-8.9); Triglycerides 89 mg/dL (< 150); eGFR For African Americans > 60 (> 60); eGFR For Non-African Americans > 60 (> 60)
[2019-02-10 08:58] LABS: Estimated Average Glucose 306 mg/dl
[2019-02-10] MEDS ORDERED: Lisinopril 20 MG TABLET PO SCH (09:00)
[2019-02-10] MEDS: Sucralfate 1 GM TABLET PO SCH ×4 (09:56→20:04)
[2019-02-10] MEDS: PARoxetine 20 MG TABLET PO SCH (09:56)
[2019-02-10] MEDS: ALPRAZolam 0.5 MG TABLET PO SCH ×3 (09:57→20:04)
[2019-02-10] MEDS: Ringers Solution, Lactated 1,000 ML IVC SCH (11:22)
[2019-02-10] MEDS ORDERED: Insulin DETEMIR 100 UNIT/ML X5UNITS SQ SCH (21:00)
[2019-02-10] MEDS ORDERED: Insulin LISPRO 300 UNITS/3 ML VIAL SQ SCH (21:00)
[2019-02-11] MEDS: Ringers Solution, Lactated 1,000 ML IVC SCH ×2 (01:25→10:57)
[2019-02-11 04:33] LABS: Basophils # 0.1 K/mcL (0.0-0.2); Basophils % 0.5 %; Eosinophils # 0.3 K/mcL (0.0-0.6); Eosinophils % 2.8 %; Hematocrit 33.4 % (35.3-44.9); Hemoglobin 10.7 g/dL (11.5-15.4); Immature Granulocytes % 0.2 % (0-4); Lymphocytes # 3.6 K/mcL (0.6-4.6); Lymphocytes % 37.1 %; Mean Corpuscular Hemoglobin 24.8 pg (28.0-33.3); Mean Corpuscular Volume 77.3 fL (83.0-100.0); Mean Platelet Volume 10.5 fL (9.4-12.4); Monocytes # 0.7 K/mcL (0.0-1.3); Monocytes % 6.7 %; Neutrophils # 5.2 K/mcL (1.6-8.9); Platelet Count 260 K/mcL (140-400); Red Blood Count 4.32 M/mcL (3.82-4.97); Red Cell Distribution Width 15.2 % (11.5-14.5); Segmented Neutrophils % 52.7 %; White Blood Count 9.8 K/mcL (4.3-11.1)
[2019-02-11 04:51] LABS: BUN/Creatinine Ratio 22 (6-26); Blood Urea Nitrogen 11 mg/dL (8-23); Calcium 8.9 mg/dL (8.6-10.3); Carbon Dioxide 27 mEq/L (23-29); Chloride 103 mEq/L (98-107); Glucose 132 mg/dL (70-105); Magnesium 1.6 mg/dL (1.6-2.6); Osmolality,Calculated 283 (280-300); Potassium 3.2 mEq/L (3.5-5.1); Sodium 136 mEq/L (136-145); eGFR For African Americans > 60 (> 60); eGFR For Non-African Americans > 60 (> 60)
[2019-02-11] MEDS: Insulin LISPRO 300 UNITS/3 ML VIAL SQ SCH ×3 (09:39→17:38)
[2019-02-11] MEDS: Sucralfate 1 GM TABLET PO SCH ×2 (09:44→17:14)
[2019-02-11] MEDS: ALPRAZolam 0.5 MG TABLET PO SCH ×2 (09:44→17:13)
[2019-02-11] MEDS: PARoxetine 20 MG TABLET PO SCH (09:45)
[2019-02-11] MEDS ORDERED: amLODIPine 5 MG TABLET PO SCH (11:05)
[2019-02-11 14:51] VITALS: BP 146/78
== END 2019-02-11 18:40 | disposition home or self-care (01) ==
LOC: EMEROOARM 21:30 → 3ANU 21:30 → SUATTDRO 02-10 01:09 → 3ANU 02-10 01:59
PROVIDERS: ADMIT Internal Medicine Nephrology; ATTEND Pharmacist